=== PATIENT | female | born 1940 | race Caucasian/White ===

== ENCOUNTER 2017-05-10 14:41 | Emergency (ER) | payer OTHER, MEDICARE ==
[2017-05-10 14:47] VITALS: TEMP 98.6; BMI 29.0
--- NOTE | 2017-05-10 15:23 | PDOC ---
History of Present Illness - General Chief Complaint: Pain Stated Complaint: RIGHT KNEE PAIN History Source: Patient Exam Limitations: No Limitations - History of Present Illness Initial Comments: This is a 76 yof with h/o osteoarthritis of the knees (recent hyaluronic gel injection into right knee) who presents c/o 10/10 constant pain to the right knee since last night with inability to ambulate unassisted, bear weight, or bend the knee. The patient explains that four days ago, both knees were injected with the hyaluronic acid gel at her orthopedist's office (Dr. Shun Orourke). The right knee injection stung significantly more than the left knee injection during the procedure. The next day, she had significantly worse pain in the right knee but was still able to weight bear and walk. Last night the pain worsened significantly. She took two oxycodone pills this morning at 8 am without relief. She denies fever, chills, nausea, vomiting, chest pain, shortness of breath, painful varicose veins, prolonged immobility or injury, or other symptoms. Past History - Past Medical History Allergies/Adverse Reactions: Allergies Allergy/AdvReac Type Severity Reaction Status Date / Time No Known Drug Allergies Allergy Verified 05/10/17 14:47 Home Medications: Ambulatory Orders Metoprolol Succinate [Toprol XL -] 100 mg PO DAILY #30 tab.sr.24h 01/15/16 Oxycodone HCl/Acetaminophen [Percocet 10-325 mg Tablet] 1 each PO Q6H PRN #60 tablet MDD 4 03/27/16 Cephalexin [Keflex] 500 mg PO BID #14 capsule 05/10/17 Diclofenac Sodium [Diclofenac Sodium ER] 1 tab PO DAILY 05/10/17 Sulfamethoxazole/Trimethoprim [Bactrim DS -] 1 tab PO BID #14 tablet 05/10/17 Anemia: No Asthma: No Cancer: No Cardiac Disorders: No CVA: No COPD: No CHF: No Dementia: No Diabetes: No GI Disorders: No Disorders: No HTN: Yes Hypercholesterolemia: No Liver Disease: No Seizures: No Thyroid Disease: No - Surgical History Abdominal Surgery: No Appendectomy: No Cardiac Surgery: No Cholecystectomy: No Lung Surgery: No Neurologic Surgery: No Orthopedic Surgery: Yes (TOTAL LEFT HIP REPLACEMENT) - Suicide/Smoking/Psychosocial Hx Smoking History: Never smoked Have you smoked in the past 12 months: No If you are a former smoker, when did you quit?: 10 YRS AGO Hx Alcohol Use: Yes (SOCIAL) Drug/Substance Use Hx: No Substance Use Type: Alcohol Hx Substance Use Treatment: No Review of Systems - Review of Systems Able to Perform ROS?: Yes Constitutional: No: Chills, Fever, Unexplained wgt Loss HEENTM: No: Nose Congestion, Throat Pain Respiratory: No: Cough, Shortness of Breath Cardiac (ROS): No: Chest Pain, Palpitations ABD/GI: No: Constipated, Diarrhea, Nausea, Vomiting : No: Burning, Dysuria Musculoskeletal: Yes: Joint Pain (right knee), Joint Swelling (right knee). No : Back Pain, Neck Pain Integumentary: No: Bruising, Rash Neurological: No: Headache, Numbness, Tingling, Weakness, Dizziness Endocrine: No: Unexplained Weight Gain, Unexplained Weight Loss *Physical Exam - Vital Signs Last Vital Signs Temp Pulse Resp BP Pulse Ox 98.6 F 70 20 160/86 99 05/10/17 14:42 05/10/17 14:42 05/10/17 14:42 05/10/17 14:42 05/10/17 14:42 - Physical Exam General Appearance: Yes: Nourished, Appropriately Dressed, Other. No: Apparent Distress HEENT: positive: EOMI, Normal Voice, Hearing Grossly Normal. negative: Scleral Icterus (R), Scleral Icterus (L), Nasal Congestion Neck: positive: Trachea midline, Supple. negative: Tender, Rigid Respiratory/Chest: positive: Lungs Clear, Normal Breath Sounds. negative: Respiratory Distress, Crackles, Rhonchi, Stridor, Wheezing Cardiovascular: positive: Regular Rhythm, Regular Rate. negative: Murmur Gastrointestinal/Abdominal: positive: Normal Bowel Sounds, Soft. negative: Tender, Organomegaly, Pulsatile Mass, Guarding Musculoskeletal: positive: Normal Inspection. negative: Decreased Range of Motion, Vertebral Tenderness Extremity: positive: Normal Capillary Refill, Tender (right knee moderate tenderness to medial and lateral jointline, soft tissue swelling and effusion about 2 cm superior to right knee, inability to flex the knee past 10 degrees secondary to pain, no ligamentous instability to varus or valgus stress, no tenderness to popliteal fossa). negative: Cyanosis Integumentary: positive: Dry, Warm, Other (3x5 cm area of patchy erythema and warmth just superior to right knee). negative: Bruising Neurologic: positive: rn embedded II-XII NML intact, Fully Oriented, Alert, Normal Mood/ Affect, Normal Response, Motor Strength 12/20 ED Treatment Course - LABORATORY CBC & Chemistry Diagram: 05/10/17 16:04 05/10/17 16:04 Medical Decision Making - Medical Decision Making 05/10/17 15:23 DDX: cellulitis, septic arthritis, local allergic reaction, DVT, arterial thrombosis 05/10/17 15:50 Spoke with RONALD Barrow covering Dr. Shun Orourke's ortho clinic. She states Dr. Orourke is out of [place] currently, recommends we contact our [facility] ortho labor utilization superintendent if needed. States also that the gel injection they do in clinic is hyaluronic acid with some additives. Rarely do their patients have allergic reactions to the components, and almost never more than 2d after the injection. Sometimes their patient have local skin irritation at the injection site. They use ethyl chloride spray to numb the skin prior to injections. *DC/Admit/Observation/Transfer Diagnosis at time of Disposition: Cellulitis Qualifiers: Site of cellulitis: extremity Site of cellulitis of extremity: lower extremity Laterality: right Qualified Code(s): L03.115 - Cellulitis of right lower limb - Discharge Dispostion Disposition: AGAINST MEDICAL ADVICE Condition at time of disposition: Stable Admit: No - Prescriptions Prescriptions: Sulfamethoxazole/Trimethoprim [Bactrim DS -] 1 tab PO BID #14 tablet Cephalexin [Keflex] 500 mg PO BID #14 capsule
[2017-05-10 16:14] LABS: BASOPHIL 0.8 % (0-2.0); EOSINOPHIL 3.2 % (0-4.5); MCH 28.7 pg (25.7-33.7); MCHC 32.9 g/dl (32.0-36.0); NEUTROPHILS 70.4 % (42.8-82.8); PLATELET COUNT 257 K/MM3 (134-434); RDW 14.7 % (11.6-15.6); WHITE BLOOD COUNT 7.4 K/mm3 (4.0-10.0)
[2017-05-10 16:40] LABS: ALBUMIN 3.7 g/dl (3.4-5.0); ANION GAP 6 (8-16); BILIRUBIN,TOTAL 0.5 mg/dL (0.2-1.0); CALCIUM 9.1 mg/dL (8.5-10.1); CO2 28 mmol/L (21-32); CREATININE 0.6 mg/dL (0.55-1.02); GLUCOSE,RANDOM 90 mg/dL (74-106); SGOT/AST 10 U/L (15-37); SGPT/ALT 17 U/L (12-78); TOT PROT 6.7 g/dl (6.4-8.2)
[2017-05-10 16:41] LABS: ALK PHOS 75 U/L (45-117)
--- NOTE | 2017-05-10 18:12 | PDOC ---
Attending Attestation - Resident Resident Name: Miranda Day - ED Attending Attestation I have performed the following: I have examined & evaluated the patient, The case was reviewed & discussed with the resident, I agree w/resident's findings & plan, Exceptions are as noted - HPI HPI: 05/10/17 18:02 76 yo F presenting to the ER 4 days s/p injection to bilateral knees Right knee more painful and swollen Pt has difficulty ranging knee or walking No fevers or chills - Medical Decision Making 05/10/17 18:06 S/p injection to knee ? septic arthritis, cellulitis, septic bursitis, local collection? Will contact Ortho Admit Abx
[2017-05-10 18:55] VITALS: BP 137/71; PULSE 60
[2017-05-10] MEDS ORDERED: CEFTRIAXONE 1 GM in DEXTROSE 5%-WATER - 50 ML IVPB ONE (19:01)
[2017-05-10] MEDS ORDERED: ACETAMINOPHEN 325 MG TABLET (FP) PO ONE (19:01)
[2017-05-10] MEDS ORDERED: ACETAMINOPHEN 325 MG TABLET (FP) ONE (19:08)
[2017-05-10] MEDS ORDERED: CEFTRIAXONE 50 ML ONE (19:09)
[2017-05-10] MEDS ORDERED: VANCOMYCIN 1 GRAM (PRE-DOCKED) 1,000 MG/250 ML BAG IVPB ONE (19:37)
[2017-05-10] MEDS ORDERED: VANCOMYCIN 1 GRAM (PRE-DOCKED) 250 ML IVPB ONE (19:39)
[2017-05-10] MEDS ORDERED: VANCOMYCIN 1,000 MG in DEXTROSE 5%-WATER - 250 ML IVPB SCH (22:00)
== END 2017-05-10 20:53 | disposition left against medical advice (07) ==
LOC: JER 14:41
DX: L03.115 Cellulitis of right lower limb (principal); M17.0 Bilateral primary osteoarthritis of knee; I10 Essential (primary) hypertension; Z96.642 Presence of left artificial hip joint
CPT/HCPCS: 36415; 73560-TC-RT; 80053; 83605; 85025; 85651; 86140; 87040; 96365; 96375; 99282-25

== ENCOUNTER 2018-12-28 15:45 | Emergency (ER) | payer OTHER, MEDICARE ==
--- NOTE | 2018-12-28 16:05 | PDOC ---
Rapid Medical Evaluation Time Seen by Provider: 12/28/18 15:59 Medical Evaluation: Allergies Allergy/AdvReac Type Severity Reaction Status Date / Time No Known Drug Allergies Allergy Verified 05/10/17 14:47 12/28/18 15:59 I have performed a brief in-person evaluation of this patient. The patient presents with a chief complaint of: rash to L flank today, painful. H/o HTN, b/l TKR Pertinent physical exam findings:extensive vesicular rash to L flank extending to back c/w shingles, does not cross midline I have ordered the following:nothing The patient will proceed to the ED for further evaluation. Discharge Disposition - Diagnosis Shingles Qualifiers: Herpes zoster complications: without complications Qualified Code(s): B02.9 - Zoster without complications - Referrals - Patient Instructions - Post Discharge Activity
[2018-12-28 16:18] VITALS: BP 116/75; PULSE 84; TEMP 99.4; BMI 30.8
--- NOTE | 2018-12-28 17:17 | PDOC ---
History of Present Illness - General Chief Complaint: Rash Stated Complaint: RASH Time Seen by Provider: 12/28/18 15:59 - History of Present Illness Initial Comments: 12/28/18 17:16 78-year-old female with a past medical history significant for hypertension presents for evaluation of painful rash times one day without systemic symptoms. Past History - Past Medical History Allergies/Adverse Reactions: Allergies Allergy/AdvReac Type Severity Reaction Status Date / Time No Known Drug Allergies Allergy Verified 12/28/18 15:59 Home Medications: Ambulatory Orders Metoprolol Succinate [Toprol XL -] 100 mg PO DAILY #30 tab.sr.24h 01/15/16 Diclofenac Sodium [Diclofenac Sodium ER] 1 tab PO DAILY 05/10/17 Acyclovir [Zovirax -] 200 mg PO 5XD #50 capsule 12/28/18 Anemia: No Asthma: No Cancer: No Cardiac Disorders: No CVA: No COPD: No CHF: No Dementia: No Diabetes: No GI Disorders: No Disorders: No HTN: Yes Hypercholesterolemia: No Liver Disease: No Seizures: No Thyroid Disease: No - Surgical History Abdominal Surgery: No Appendectomy: No Cardiac Surgery: No Cholecystectomy: No Lung Surgery: No Neurologic Surgery: No Orthopedic Surgery: Yes (TOTAL LEFT HIP REPLACEMENT) - Suicide/Smoking/Psychosocial Hx Smoking History: Never smoked Have you smoked in the past 12 months: No If you are a former smoker, when did you quit?: 10 YRS AGO Information on smoking cessation initiated: No Hx Alcohol Use: No Drug/Substance Use Hx: No Substance Use Type: Alcohol Hx Substance Use Treatment: No Review of Systems - Review of Systems Integumentary: Yes: Rash *Physical Exam - Vital Signs Last Vital Signs Temp Pulse Resp BP Pulse Ox 99.4 F 84 16 116/75 100 12/28/18 16:00 12/28/18 16:00 12/28/18 16:00 12/28/18 16:00 12/28/18 16:00 - Physical Exam Comments: 12/28/18 17:16 There is a vesicular rash starting at the back wrapping around to the front on the left flank in the areas of T2-10-11 and 12. There are no open vesicles or indication of secondary infection Medical Decision Making - Medical Decision Making 12/28/18 17:15 Acyclovir physician Reny stressed the importance of follow-up. Patient is also on oxycodone after a knee replacement which was done in July *DC/Admit/Observation/Transfer Diagnosis at time of Disposition: Shingles Qualifiers: Herpes zoster complications: without complications Qualified Code(s): B02.9 - Zoster without complications - Discharge Dispostion Disposition: HOME Condition at time of disposition: Stable Decision to Admit order: No - Prescriptions Prescriptions: Acyclovir [Zovirax -] 200 mg PO 5XD #50 capsule - Referrals Referrals: Jayne Grimm MD [Primary Care Provider] - - Patient Instructions Printed Discharge Instructions: [facility] [place] for Shingles Additional Instructions: Please take the antiviral medication as directed return to the emergency room for worsening symptoms and follow-up with your primary care physician without fail in 1-2 days for further evaluation and treatment options. - Post Discharge Activity
== END 2018-12-28 17:20 | disposition home or self-care (01) ==
LOC: JERFT 15:45
DX: B02.9 Zoster without complications (principal); Z96.659 Presence of unspecified artificial knee joint; I10 Essential (primary) hypertension; Z96.642 Presence of left artificial hip joint; Z87.891 Personal history of nicotine dependence
CPT/HCPCS: 99281-25

== ENCOUNTER 2023-01-02 18:13 | Emergency (ER) | payer OTHER, MEDICARE ==
[2023-01-02 18:22] VITALS: RESP 18; BMI 34.0
[2023-01-02 20:53] LABS: EOS % 2.8 % (0-4.5); HEMATOCRIT 33.9 % (32.4-45.2); LYMPH % 17.5 % (8-40); MCH 27.2 pg (25.7-33.7); MCHC 32.4 g/dl (32.0-36.0); MEAN CELL VOLUME 84.1 fl (80-96); MEAN PLT VOLUME 8.6 fl (7.5-11.1); NEUT % 68.7 % (42.8-82.8); PLATELET COUNT 203 10^3/uL (134-434); RBC 4.03 M/mm3 (3.60-5.2); RDW 15.9 % (11.6-15.6); WHITE BLOOD COUNT 6.9 K/mm3 (4.0-10.0)
[2023-01-02 21:10] LABS: POTASSIUM 4.1 mmol/L (3.5-5.1)
[2023-01-02 21:12] LABS: CALCIUM 8.6 mg/dL (8.5-10.1)
[2023-01-02 21:13] LABS: ALBUMIN 3.6 g/dl (3.4-5.0); BLOOD UREA NITROGEN 25.1 mg/dL (7-18)
[2023-01-02 21:16] LABS: CREATININE 0.8 mg/dL (0.55-1.3); PHOSPHOROUS 3.4 mg/dL (2.5-4.9)
[2023-01-02 21:17] LABS: TOT PROT 6.8 g/dl (6.4-8.2)
[2023-01-02 21:18] LABS: BILIRUBIN,TOTAL 0.5 mg/dL (0.2-1)
[2023-01-02 21:21] LABS: N-TERMINAL BNP 2821.1 pg/ml (5-450)
[2023-01-02 21:36] LABS: PH,URINE 5.5 (5.0-8.0); URINE APPEARANCE CLEAR; URINE BILIRUBIN NEGATIVE (NEGATIVE); URINE COLOR YELLOW; URINE GLUCOSE (UA) NEGATIVE (NEGATIVE); URINE KETONE NEGATIVE (NEGATIVE); URINE LEUK ESTERASE NEGATIVE (NEGATIVE); URINE NITRITE NEGATIVE (NEGATIVE); URINE PROTEIN NEGATIVE (NEGATIVE)
[2023-01-02] MEDS ORDERED: LIDOCAINE PATCH REMOVAL MC SCH (22:00)
[2023-01-02] MEDS ORDERED: LIDOCAINE 5% TOPICAL PATCH TP ONE (23:26)
[2023-01-02] MEDS ORDERED: LIDOCAINE 5% TOPICAL PATCH ONE (23:30)
[2023-01-02 23:35] VITALS: BP 140/84; PULSE 88; TEMP 97.7
== END 2023-01-02 23:48 | disposition home or self-care (01) ==
LOC: JER 18:13
DX: S09.90XA Unspecified injury of head, initial encounter (principal); M54.2 Cervicalgia; R22.42 Localized swelling, mass and lump, left lower limb; R22.41 Localized swelling, mass and lump, right lower limb; W01.198A Fall on same level from slipping, tripping and stumbling with subsequent striking against other object, initial encounter; Z20.822 Contact with and (suspected) exposure to COVID-19
CPT/HCPCS: 0241U-QW; 36415; 70450-TC; 71045-TC-FY; 72125-TC; 72170-TC-FY; 73030-TC-LT-FY; 73502-TC-LT-FY; 73502-TC-RT-FY; 80053; 81003; 83690; 83735; 83880; 84100; 84484; 85025; 87086; 93005; 93010; 93970-TC; 99285-25

== ENCOUNTER 2023-12-15 18:03 | Emergency (ER) | payer OTHER, MEDICARE ==
[2023-12-15 18:20] VITALS: BP 108/47; PULSE 75; RESP 18; TEMP 98.6; BMI 33.9
== END 2023-12-15 20:04 | disposition left against medical advice (07) ==
LOC: JER 18:03
DX: R55 Syncope and collapse (principal)
CPT/HCPCS: 93005; 93010; 99283-25

== ENCOUNTER 2023-12-20 14:14 | Emergency (ER) | payer OTHER, MEDICARE ==
[2023-12-20 14:19] VITALS: RESP 16; TEMP 98.4; BMI 32.3
[2023-12-20] MEDS ORDERED: DALBAVANCIN HCL 500 MG VIAL (RESTRICTED TO ID ONLY) IVPB ONE (17:17)
[2023-12-20] MEDS: DALBAVANCIN HCL 1,500 MG in DEXTROSE 5%-WATER - 500 ML IVPB ONE (17:36)
[2023-12-20 17:54] VITALS: BP 131/65; PULSE 83
== END 2023-12-20 18:36 | disposition left against medical advice (07) ==
LOC: JER 14:14
DX: M79.662 Pain in left lower leg (principal); S81.802A Unspecified open wound, left lower leg, initial encounter; I87.2 Venous insufficiency (chronic) (peripheral); X58.XXXA Exposure to other specified factors, initial encounter
CPT/HCPCS: 99284-25; J0875

== ENCOUNTER 2024-06-28 13:22 | Emergency (ER) | payer OTHER, MEDICARE ==
[2024-06-28 13:40] VITALS: RESP 18; TEMP 98.8; BMI 32.3
[2024-06-28] MEDS ORDERED: ALBUTEROL SO4 2.5/IPRATROPIUM 0.5 INH SOL 3 ML VIAL.NEB. NEB ONE (14:29)
[2024-06-28] MEDS ORDERED: FAMOTIDINE 20 MG TABLET ONE (14:30)
[2024-06-28] MEDS: FAMOTIDINE 20 MG TABLET PO ONE (14:38)
[2024-06-28] MEDS: ALBUTEROL SO4 2.5/IPRATROPIUM 0.5 INH SOL 3 ML VIAL.NEB. NEB ONE (14:38)
[2024-06-28 14:39] LABS: BASO % 0.3 % (0-2.0); EOS % 0.4 % (0-4.5); HEMATOCRIT 39.4 % (32.4-45.2); HEMOGLOBIN 12.5 GM/dL (10.7-15.3); LYMPH % 13.2 % (8-40); MCH 27.7 pg (25.7-33.7); MCHC 31.7 g/dl (32.0-36.0); MEAN CELL VOLUME 87.5 fl (80-96); MEAN PLT VOLUME 8.8 fl (7.5-11.1); MONO % 7.6 % (3.8-10.2); NEUT % 78.5 % (42.8-82.8); PLATELET COUNT 257 10^3/uL (134-434); RDW 15.1 % (11.6-15.6); WHITE BLOOD COUNT 8.7 K/mm3 (4.0-10.0)
[2024-06-28] MEDS: SODIUM CHLORIDE FOR INHALATION 3 ML VIAL.NEB IH ONE (14:39)
[2024-06-28 15:18] LABS: POTASSIUM 4.4 mmol/L (3.5-5.1)
[2024-06-28 15:21] LABS: ALBUMIN 3.7 g/dl (3.4-5.0); BLOOD UREA NITROGEN 23.5 mg/dL (7-18); CALCIUM 9.2 mg/dL (8.5-10.1)
[2024-06-28 15:24] LABS: CREATININE 1.1 mg/dL (0.55-1.3)
[2024-06-28 15:25] LABS: BILIRUBIN,TOTAL 1.3 mg/dL (0.2-1); TOT PROT 7.7 g/dl (6.4-8.2)
[2024-06-28 15:28] LABS: N-TERMINAL BNP 1878.9 pg/ml (5-450)
[2024-06-28 18:40] VITALS: BP 129/61; PULSE 93
== END 2024-06-28 20:39 | disposition home or self-care (01) ==
LOC: JER 13:22
PROC: 3E03329 Introduction of Other Anti-infective into Peripheral Vein, Percutaneous Approach (ICD-10-PCS; principal; 2024-06-28)
PROC: 3E03329 Introduction of Other Anti-infective into Peripheral Vein, Percutaneous Approach (ICD-10-PCS; 2024-06-28)
PROC: 3E033GC Introduction of Other Therapeutic Substance into Peripheral Vein, Percutaneous Approach (ICD-10-PCS; 2024-06-28)
PROC: 3E0F7GC Introduction of Other Therapeutic Substance into Respiratory Tract, Via Natural or Artificial Opening (ICD-10-PCS; 2024-06-28)
DX: J18.9 Pneumonia, unspecified organism (principal); R06.02 Shortness of breath; R05.9 Cough, unspecified; Z20.822 Contact with and (suspected) exposure to COVID-19
CPT/HCPCS: 0241U-QW; 36415; 71046-TC-FY; 71275-TC; 80053; 82550; 83880; 84484; 85025; 93005; 93010; 94640; 96365; 96366; 96375; 99285-25; Q9967

== ENCOUNTER 2024-08-19 10:37 | Emergency (ER) | payer OTHER, MEDICARE ==
[2024-08-19 10:48] VITALS: BMI 29.0
[2024-08-19 12:30] LABS: BASO % 0.9 % (0-2.0); HEMATOCRIT 38.6 % (32.4-45.2); HEMOGLOBIN 12.1 GM/dL (10.7-15.3); LYMPH % 14.4 % (8-40); MCH 27.3 pg (25.7-33.7); MCHC 31.4 g/dl (32.0-36.0); MEAN PLT VOLUME 8.5 fl (7.5-11.1); MONO % 7.3 % (3.8-10.2); NEUT % 75.4 % (42.8-82.8); PLATELET COUNT 239 10^3/uL (134-434); RBC 4.43 M/mm3 (3.60-5.2); RDW 15.4 % (11.6-15.6); WHITE BLOOD COUNT 7.3 K/mm3 (4.0-10.0)
[2024-08-19 12:35] LABS: INR 1.3 (0.83-1.09); PROTHROMBIN TIME (PATIENT) 14.6 SEC (9.7-13.0)
[2024-08-19 12:38] LABS: ACTIVATED PTT 70.7 SECONDS (25.2-36.5)
[2024-08-19 12:49] LABS: POTASSIUM 4.5 mmol/L (3.5-5.1)
[2024-08-19 12:52] LABS: ALBUMIN 3.9 g/dl (3.4-5.0); BLOOD UREA NITROGEN 22.2 mg/dL (7-18); CALCIUM 9.5 mg/dL (8.5-10.1); MAGNESIUM 2.2 mg/dL (1.8-2.4)
[2024-08-19 12:55] LABS: CREATININE 0.9 mg/dL (0.55-1.3)
[2024-08-19 12:57] LABS: TOT PROT 7.8 g/dl (6.4-8.2)
[2024-08-19 15:06] VITALS: BP 141/77; PULSE 78; RESP 18; TEMP 97.7
== END 2024-08-19 16:32 | disposition left against medical advice (07) ==
LOC: JER 10:37
DX: R13.10 Dysphagia, unspecified (principal); R07.0 Pain in throat; R26.81 Unsteadiness on feet
CPT/HCPCS: 36415; 70450-TC; 70496-TC; 70498-TC; 71046-TC-FY; 80053; 83735; 84484; 85025; 85610; 85730; 86850; 86900; 86901; 93005; 93010; 99285-25; Q9967